=== PATIENT | female | born 1950 | race Caucasian/White ===

== ENCOUNTER → 2019-04-12 | Outpatient (CLI) | payer MEDICARE ==
[~2019-04-12] MED LIST: ACET325 PO; Bupropion HCl150 M2 PO; CENTRUM SILVER1 EAC3 PO; CHOL10002; Dulcolax Stool100 MG PO; FERSU220EL PO; LANS15EC PO; LEVSOD125 PO; LEVSOD50 PO; Milk Of Ma400 MG/5 M PO; NITR.4SL SL; Omeprazole20 M1; PANT40 PO; PRAM.5 PO; TRAM50 PO; [UNRECOGNIZED DRUG - OTHER] PO
== END | disposition home or self-care (01) ==
LOC: LAB SHORT 09:22 → OLS 09:22
DX: L50.9 Urticaria, unspecified (principal)
CPT/HCPCS: 88305

== ENCOUNTER 2019-07-31 14:02 | Day surgery (SDC) | payer MEDICARE ==
[~2019-07-31] VITALS: Ht 167.6 cm; Wt 78.9 kg
[2019-07-31] MEDS ORDERED: Testopel75 MG (14:23)
[2019-07-31] MEDS ORDERED: Heartburn Relie10 MG PO (14:24)
== END 2019-07-31 16:15 | disposition home or self-care (01) ==
LOC: ORSCSDS 14:02
PROVIDERS: Internal Medicine Gastroenterology
PROC: 0DB68ZX Excision of Stomach, Via Natural or Artificial Opening Endoscopic, Diagnostic (ICD-10-PCS; principal; 2019-07-31 15:15)
PROC: 0DB58ZX Excision of Esophagus, Via Natural or Artificial Opening Endoscopic, Diagnostic (ICD-10-PCS; principal; 2019-07-31 15:15)
PROC: 0DB98ZX Excision of Duodenum, Via Natural or Artificial Opening Endoscopic, Diagnostic (ICD-10-PCS; principal; 2019-07-31 15:15)
DX: K22.70 Barrett's esophagus without dysplasia (principal); K29.70 Gastritis, unspecified, without bleeding; K31.7 Polyp of stomach and duodenum; K44.9 Diaphragmatic hernia without obstruction or gangrene; E03.9 Hypothyroidism, unspecified; K21.9 Gastro-esophageal reflux disease without esophagitis; Z87.891 Personal history of nicotine dependence; Z79.899 Other long term (current) drug therapy
CPT/HCPCS: 87081; 88305; 88342; J2704; J7120

== ENCOUNTER 2019-08-21 08:30 | Day surgery (SDC) | payer MEDICARE ==
[~2019-08-21 08:30] MED LIST changes: +Heartburn Relie10 MG PO; +Testopel75 MG
== END 2019-08-21 22:43 | disposition home or self-care (01) ==
LOC: MOI US 08:30 → MOI MAM 09:00 → MOI US 09:00
DX: N60.02 Solitary cyst of left breast (principal); N60.82 Other benign mammary dysplasias of left breast; Z88.0 Allergy status to penicillin; Z88.1 Allergy status to other antibiotic agents; Z88.5 Allergy status to narcotic agent; Z79.899 Other long term (current) drug therapy
CPT/HCPCS: 19083; 77065; 88305; A4648; G0279

== ENCOUNTER → 2020-09-23 | Outpatient (CLI) | payer MEDICARE | LOC: LAB 18:42 → LAB SHORT 18:42 | DX: S66.912A Strain of unspecified muscle, fascia and tendon at wrist and hand level, left hand, initial encounter (principal) | CPT/HCPCS: 84550 ==

== ENCOUNTER 2022-02-18 07:11 | Day surgery (SDC) | payer MEDICARE ==
[~2022-02-18] VITALS: Ht 167.6 cm; Wt 80.3 kg
[~2022-02-18 07:11] MED LIST changes: +ALLEGRA ALLERG180 MG PO; +ALLO100 PO; +FAMO20 PO; +MONT10T; +MULTI-VITAMIN1 EAC2 PO; +Synthroid200 MCG PO; +TESTOSTERONE INJ; +Voltaren100 GM
--- NOTE | 2022-02-18 08:35 | NUR ---
Ambulatory in Day Surgery. History, Chart, Medications and Allergies reviewed before start of procedure. Patient States Post-Procedure ride home has been arranged WITH .
--- NOTE | 2022-02-18 10:29 | NUR ---
Patient up to Ambulate independently. Gait steady. Discharged via wheelchair to private car for ride home. Discharged via wheelchair to private car for ride home.
== END 2022-02-18 23:15 | disposition home or self-care (01) ==
LOC: ORSCMMR 07:11 → ORD 08:30 → ORSCMMR 08:30
PROVIDERS: Internal Medicine Gastroenterology
PROC: 0DJD8ZZ Inspection of Lower Intestinal Tract, Via Natural or Artificial Opening Endoscopic (ICD-10-PCS; principal; 2022-02-18 08:30)
PROC: 0DB78ZX Excision of Stomach, Pylorus, Via Natural or Artificial Opening Endoscopic, Diagnostic (ICD-10-PCS; principal; 2022-02-18 08:30)
PROC: 0DB48ZX Excision of Esophagogastric Junction, Via Natural or Artificial Opening Endoscopic, Diagnostic (ICD-10-PCS; principal; 2022-02-18 08:30)
PROC: 0DB98ZX Excision of Duodenum, Via Natural or Artificial Opening Endoscopic, Diagnostic (ICD-10-PCS; principal; 2022-02-18 08:30)
DX: R19.4 Change in bowel habit (principal); K92.1 Melena; K22.70 Barrett's esophagus without dysplasia; K21.9 Gastro-esophageal reflux disease without esophagitis; K44.9 Diaphragmatic hernia without obstruction or gangrene; E03.9 Hypothyroidism, unspecified; M10.9 Gout, unspecified; Z79.899 Other long term (current) drug therapy
CPT/HCPCS: 88305; 88312; 88342; A9270; J2704; J7120

== ENCOUNTER → 2022-03-10 | Outpatient (CLI) | payer MEDICARE ==
[2022-03-10 17:37] LABS: Source, Urine Voided
[2022-03-10 19:15] LABS: Appearance, Urine Clear (Clear); Bilirubin, Urine Neg (Neg); Blood, Urine Neg (Neg); Color, Urine Yellow (P-Yellow); Glucose Qualitative, Urine Neg (Neg); Ketones, Urine Neg (Neg); Leukocyte Esterase, Urine Neg (Neg); Nitrite, Urine Neg (Neg); Protein, Urine Neg (Neg); Specific Gravity, Urine 1.005 (1.003-1.022); Urobilinogen, Urine NORM (Normal)
[2022-03-10 20:12] LABS: Albumin, Blood 3.8 g/dL (3.4-5.0); Albumin/Globulin Ratio 1.1 (0.8-1.8); Bilirubin, Total 0.3 mg/dL (0.1-1.0); Bun/Creatinine Ratio 17.1 (12.0-20.0); Calcium, Blood 9.3 mg/dL (8.5-10.1); Globulin, Blood 3.4 g/dL (2.2-4.0); Potassium, Blood 4.4 mmol/L (3.5-5.5); Total Protein, Blood 7.2 g/dL (6.4-8.2)
== END | disposition home or self-care (01) ==
LOC: LAB SHORT 17:36 → LAB 17:36
PROVIDERS: Internal Medicine Hematology & Oncology
DX: R30.0 Dysuria (principal); D75.1 Secondary polycythemia; E53.8 Deficiency of other specified B group vitamins
CPT/HCPCS: 80053; 81003; 82607; 82746; 84100

== ENCOUNTER → 2022-08-28 | Outpatient (CLI) | payer MEDICARE | END | disposition home or self-care (01) | LOC: LAB 11:01 → LAB SHORT 11:01 | DX: E53.8 Deficiency of other specified B group vitamins (principal) | CPT/HCPCS: 82607; 82746 ==

== ENCOUNTER → 2023-05-04 | Outpatient (CLI) | payer MEDICARE | END | disposition home or self-care (01) | LOC: LAB SHORT 14:30 → LAB 14:30 | DX: N81.0 Urethrocele (principal) | CPT/HCPCS: 87086 ==

== ENCOUNTER → 2024-04-18 | Outpatient (CLI) | payer MEDICARE ==
[2024-04-18 19:46] LABS: BASOPHILS ABSOLUTE AUTO 0.07 K/mm3 (0.00-0.23); BASOPHILS PERCENT AUTO 1 % (0-2); EOSINOPHILS ABSOLUTE AUTO 0.14 K/mm3 (0.00-0.68); EOSINOPHILS PERCENT AUTO 2 % (0-6); Hematocrit 47.6 % (33.0-51.0); Hemoglobin 16.3 g/dL (11.5-16.0); IMMATURE GRAN ABSOLUTE AUTO 0.02 K/mm3 (0.00-0.10); IMMATURE GRAN PERCENT AUTO 0 % (0-1); LYMPHOCYTES ABSOLUTE AUTO 2.17 K/mm3 (0.84-5.20); LYMPHOCYTES PERCENT AUTO 31 % (21-46); MONOCYTES ABSOLUTE AUTO 0.67 K/mm3 (0.16-1.47); MONOCYTES PERCENT AUTO 10 % (4-13); Mean Corpuscular HGB 30.7 pg (26.0-34.0); Mean Corpuscular HGB Conc 34.2 g/dL (31.5-36.5); Mean Corpuscular Volume 90 fL (80-100); Mean Platelet Volume 10.1 fL (9.1-12.4); NEUTROPHILS ABSOLUTE AUTO 3.95 K/mm3 (1.96-9.15); NEUTROPHILS PERCENT AUTO 56 % (41-73); Platelet Count 285 K/mm3 (150-400); RDW Coefficient Variation 13.7 % (11.7-14.2); RDW Standard Deviation 45.5 fL (35.1-46.3); Red Blood Cell Count 5.31 M/mm3 (3.80-5.20); White Blood Cell Count 7.02 K/mm3 (4.00-11.30)
[2024-04-18 21:03] LABS: Albumin, Blood 3.8 g/dL (3.4-5.0); Albumin/Globulin Ratio 1.1 (0.8-1.8); Bilirubin, Total 0.5 mg/dL (0.1-1.0); Bun/Creatinine Ratio 17.4 (12.0-20.0); Calcium, Blood 9.5 mg/dL (8.5-10.1); Creatinine, Blood 0.86 mg/dL (0.40-1.00); Globulin, Blood 3.6 g/dL (2.2-4.0); Potassium, Blood 4.2 mmol/L (3.5-5.5); Thyroid Stimulating Hormone 0.446 uIU/mL (0.360-4.800); Total Protein, Blood 7.4 g/dL (6.4-8.2)
[2024-04-25 11:20] LABS: TESTOSTERONE, FREE BY DIALYSIS 35.3 pg/mL; TESTOSTERONE, TOTAL MASS SPEC 325.8 ng/dL
== END | disposition home or self-care (01) ==
LOC: LAB 19:07 → LAB SHORT 19:07
PROVIDERS: Family Medicine
DX: Z51.81 Encounter for therapeutic drug level monitoring (principal); D75.1 Secondary polycythemia; E03.9 Hypothyroidism, unspecified; F64.9 Gender identity disorder, unspecified; G62.9 Polyneuropathy, unspecified; R20.2 Paresthesia of skin; Z79.890 Hormone replacement therapy; Z79.899 Other long term (current) drug therapy
CPT/HCPCS: 80053; 82607; 82746; 83036; 84402; 84403; 84443; 85025

== ENCOUNTER 2024-11-18 18:49 | Observation (INO) | payer MEDICARE ==
[~2024-11-18] VITALS: Ht 167.6 cm; Wt 71.7 kg
[2024-11-18 19:31] LABS: BASOPHILS ABSOLUTE AUTO 0.05 K/mm3 (0.00-0.23); BASOPHILS PERCENT AUTO 1 % (0-2); EOSINOPHILS ABSOLUTE AUTO 0.15 K/mm3 (0.00-0.68); EOSINOPHILS PERCENT AUTO 2 % (0-6); Hematocrit 42.6 % (33.0-51.0); Hemoglobin 14.8 g/dL (11.5-16.0); IMMATURE GRAN ABSOLUTE AUTO 0.02 K/mm3 (0.00-0.10); IMMATURE GRAN PERCENT AUTO 0 % (0-1); LYMPHOCYTES ABSOLUTE AUTO 2.27 K/mm3 (0.84-5.20); LYMPHOCYTES PERCENT AUTO 27 % (21-46); MONOCYTES ABSOLUTE AUTO 0.73 K/mm3 (0.16-1.47); MONOCYTES PERCENT AUTO 9 % (4-13); Mean Corpuscular HGB 31.8 pg (26.0-34.0); Mean Corpuscular HGB Conc 34.7 g/dL (31.5-36.5); Mean Corpuscular Volume 92 fL (80-100); Mean Platelet Volume 9.4 fL (9.1-12.4); NEUTROPHILS ABSOLUTE AUTO 5.06 K/mm3 (1.96-9.15); NEUTROPHILS PERCENT AUTO 61 % (41-73); Platelet Count 278 K/mm3 (150-400); RDW Coefficient Variation 12.9 % (11.7-14.2); RDW Standard Deviation 43.2 fL (35.1-46.3); Red Blood Cell Count 4.65 M/mm3 (3.80-5.20); White Blood Cell Count 8.28 K/mm3 (4.00-11.30)
[2024-11-18 19:38] LABS: Albumin, Blood 3.5 g/dL (3.4-5.0); Albumin/Globulin Ratio 0.9 (0.8-1.8); Bilirubin, Total 0.2 mg/dL (0.1-1.0); Bun/Creatinine Ratio 18.9 (12.0-20.0); Calcium, Blood 9.1 mg/dL (8.5-10.1); Creatinine, Blood 0.79 mg/dL (0.40-1.00); Globulin, Blood 3.7 g/dL (2.2-4.0); Potassium, Blood 3.7 mmol/L (3.5-5.5); Total Protein, Blood 7.2 g/dL (6.4-8.2)
[2024-11-18] MEDS ORDERED: Aspirin 81 MG TabEC PO ONE (21:50)
[2024-11-18] MEDS ORDERED: Nitroglycerin 0.4 MG SUBL SL PRN (21:50)
[2024-11-18] MEDS ORDERED: TESTOSTERONE75 GM TD (23:44)
[2024-11-18] MEDS ORDERED: Ondansetron HCl 2 MG / ML 2ML Vial IV PRN (23:45)
[2024-11-18] MEDS ORDERED: NS 1,000 ML IV SCH (23:45)
[2024-11-18] MEDS ORDERED: FentaNYL Citrate 50 MCG/ML 2 ML Injection IV PRN (23:45)
[2024-11-19] MEDS ORDERED: Enoxaparin 40 MG/0.4 ML SYR SC SCH (00:04)
[2024-11-19] MEDS ORDERED: Mag Hydrox/Al Hydrox/Simeth 18 ML,Lidocaine 2% Viscous Soln 9 ML,Atropine/Scopalam/Hyos... PO PRN (00:10)
[2024-11-19 00:37] VITALS: BP 148/85
--- NOTE | 2024-11-19 01:36 | NUR ---
ADMIT NOTE 74 YR OLD (FEMALE TRANSITIONING FROM FEMALE TO MALE) ADMITTED TO FLOOR FROM THE ED WITH DX OF CHEST PAIN. ALERT AND ORIENTED. PREFERRED NAME IS "BOLT", GIVEN NAME IS KAROLINA. BP ELEVATED, OTHERWISE VSS. VOICED HAD MED IN ED AND CHEST PAIN IS GONE. UP AD SUSANNA. ABLE TO REPOSITION SELF IN BED WITHOUT ASSIST. ORIENTED TO USE OF CALL LIGHT AND BED CONTROL. RAILS UP X 2. CALL LIGHT IN REACH. WILL MONITOR
[2024-11-19 03:54] VITALS: BP 114/67
--- NOTE | 2024-11-19 04:28 | NUR ---
DATABASE OPERATOR SUMMARY ADMITTED TO FLOOR EARLIER IN THE SHIFT WITH DX OF CHEST PAIN. MED TELE [facility]. NO C/O CHEST PAIN OF THIS WRITING. ALERT AND ORIENTED. COOPERATIVE WITH CARE. SEXUAL ORIENTATION IN TRANSITION FROM FEMALE TO MALE AND GOES BY NAME OF"[email or web address]". HAS BEEN RESTING QUIETLY WITH NO C/O VOICED. ABLE TO REPOSITION SELF IN BED WITHOUT ASSIST. CALL LIGHT IN REACH, RAILS UP X 2 AND BED IN LOW POSITION FOR SAFETY. [place] LL CONTINUE TO MONITOR. VSS
[2024-11-19 07:45] VITALS: BP 130/86
[2024-11-19 08:25] LABS: BASOPHILS ABSOLUTE AUTO 0.05 K/mm3 (0.00-0.23); BASOPHILS PERCENT AUTO 1 % (0-2); EOSINOPHILS ABSOLUTE AUTO 0.14 K/mm3 (0.00-0.68); EOSINOPHILS PERCENT AUTO 2 % (0-6); Hematocrit 40.1 % (33.0-51.0); Hemoglobin 13.9 g/dL (11.5-16.0); IMMATURE GRAN ABSOLUTE AUTO 0.01 K/mm3 (0.00-0.10); IMMATURE GRAN PERCENT AUTO 0 % (0-1); LYMPHOCYTES ABSOLUTE AUTO 1.73 K/mm3 (0.84-5.20); LYMPHOCYTES PERCENT AUTO 30 % (21-46); MONOCYTES ABSOLUTE AUTO 0.54 K/mm3 (0.16-1.47); MONOCYTES PERCENT AUTO 9 % (4-13); Mean Corpuscular HGB 31.7 pg (26.0-34.0); Mean Corpuscular HGB Conc 34.7 g/dL (31.5-36.5); Mean Corpuscular Volume 92 fL (80-100); Mean Platelet Volume 9.7 fL (9.1-12.4); NEUTROPHILS PERCENT AUTO 58 % (41-73); Platelet Count 236 K/mm3 (150-400); RDW Coefficient Variation 12.9 % (11.7-14.2); RDW Standard Deviation 43.8 fL (35.1-46.3); Red Blood Cell Count 4.38 M/mm3 (3.80-5.20); White Blood Cell Count 5.87 K/mm3 (4.00-11.30)
[2024-11-19 08:53] LABS: Albumin, Blood 3.2 g/dL (3.4-5.0); Bilirubin, Total 0.7 mg/dL (0.1-1.0); Bun/Creatinine Ratio 17.8 (12.0-20.0); Calcium, Blood 8.8 mg/dL (8.5-10.1); Creatinine, Blood 0.79 mg/dL (0.40-1.00); Globulin, Blood 3.2 g/dL (2.2-4.0); Total Protein, Blood 6.4 g/dL (6.4-8.2)
[2024-11-19] MEDS ORDERED: Pantoprazole Sodium 40 MG Tab PO SCH (09:00)
[2024-11-19] MEDS ORDERED: Levothyroxine Sodium 0.088 MG Tab PO SCH (09:00)
[2024-11-19] MEDS ORDERED: Multivitamins 1 Tab PO SCH (09:00)
[2024-11-19] MEDS ORDERED: HydrOXYzine Pamoate 25 MG Cap PO PRN (11:05)
[2024-11-19] MEDS ORDERED: Aspirin 81 MG Chew PO ONE (11:11)
[2024-11-19] MEDS ORDERED: Regadenoson 0.4 MG/5 ML SYRINGE ONE (12:03)
[2024-11-19] MEDS ORDERED: Aminophylline 250MG / 10ML 10 ML Vial ONE (12:03)
[2024-11-19] MEDS ORDERED: Acetaminophen 325 MG TABLET PO PRN (14:05)
[2024-11-19] MEDS ORDERED: Atarax10 MG PO (15:04)
--- NOTE | 2024-11-19 15:28 | NUR ---
ASSUMPTION OF CARE/DISCHARGE SUMMARY: RECEIVED REPORTS FROM ANGÉLICA MATA. ASSUME CARE OF PATIENT AT 1410. PATIENT REPORTS HEADACHE, MEDICATED FOR HEADACHE PER EMAR c GOOD EFFECT. PATIENT HAD HER STRESS TEST DONE TODAY. DR. LA SPOKE TO PATIENT c RESULT. PATIENT A/OX4, PLEASANT AND COOPERATIVE c CARE. PATIENT DENIES CP/PRESSURE, SOB, N/V AND DIZZINESS. PATIENT PIV DC'D. PATIENT DISCHARGE HOME. DISCHARGE INSTRUCTIONS PACKET GIVEN TO PATIENT. PATIENT EDUCATED ON ADMITTING DX'S OF CP, S/S, TX AND TO F/U c PCP. PATIENT VERBALIZED UNDERSTANDING AND NO FURTHER QUESTIONS. RX WAS FAXED TO PATIENT PREFERRED PHARMACY-[facility]. ALL PERSONAL BELONGINGS WERE SENT c THE PATIENT. PATIENT LEFT THE ROOM AT 1520, TRANSPORTED VIA WHEELCHAIR BY JUAN M TO PATIENT ENTRANCE.
== END 2024-11-19 15:20 | disposition home or self-care (01) ==
LOC: ER 18:49 → ERHOLD 18:50 → MEDS 23:41 → ERHOLD 23:41 → MEDS 23:42 → ERHOLD 11-19 00:30 → MEDS 11-19 15:20
PROVIDERS: Student in an Organized Health Care Education/Training Program; ADMIT Internal Medicine
DX: R07.9 Chest pain, unspecified (principal); F41.9 Anxiety disorder, unspecified; F32.A Depression, unspecified; E03.9 Hypothyroidism, unspecified; K21.9 Gastro-esophageal reflux disease without esophagitis; N80.9 Endometriosis, unspecified; M10.9 Gout, unspecified; Z73.3 Stress, not elsewhere classified; Z88.2 Allergy status to sulfonamides; Z88.0 Allergy status to penicillin; Z88.5 Allergy status to narcotic agent; Z88.1 Allergy status to other antibiotic agents; Z79.890 Hormone replacement therapy; Z87.891 Personal history of nicotine dependence
CPT/HCPCS: 36415; 71046; 78452; 80053; 83690; 83880; 84484; 85025; 85379; 93005; 93010; 93017; 99285-25; A9270; A9500; G0378; J0280; J1650; J2785